=== PATIENT | female | born 1935 | race Caucasian/White ===

== ENCOUNTER 2020-03-01 17:45 | Inpatient (IN) ==
[2020-03-01] MEDS ORDERED: DILTIAZEM 50 MG/10 ML VIAL IV STA (18:20)
[2020-03-01] MEDS ORDERED: DILTIAZEM 25 MG/5 ML VIAL IV ONE (18:26)
[2020-03-01] MEDS ORDERED: dilTIAZem Drip 125 MG/125 ML PREMIX IV ONE (18:39)
[2020-03-01] MEDS ORDERED: KETOROLAC 30 MG/1 ML VIAL IV STA (18:59)
[2020-03-01] MEDS ORDERED: ASPIRIN 325 MG TABLET PO STA (18:59)
[2020-03-01] MEDS ORDERED: ENOXAPARIN 100 MG/ML SYRINGE SUBCUT STA ×2 (18:59→20:27)
[2020-03-01] MEDS ORDERED: SODIUM CHLORIDE 0.9% 500 ML IV STA (18:59)
[2020-03-01] MEDS ORDERED: ONDANSETRON 4 MG/2 ML VIAL IV STA (18:59)
[2020-03-01] MEDS ORDERED: dilTIAZem Drip 125 MG/125 ML PREMIX IV SCH (19:00)
[2020-03-01 19:06] LABS: Basophils # 0.1 10*3/uL (0.0-0.2); Basophils % 0.7 % (0.0-0.8); Eosinophils # 0.3 10*3/uL (0.0-0.87); Hematocrit 33.7 VOL% (35.7-47.0); Hemoglobin 10.9 GM/DL (12.0-16.0); Immature Granulocytes % 1.8 %; Immature Granulocytes Absolute 0.19 #; Lymphocytes # 1.5 10*3/uL (1.4-4.0); Lymphocytes % 13.6 % (21.3-54.2); Mean Corpuscular HGB Conc 32.3 GM/DL (32-36); Mean Corpuscular Volume 88.2 FL (87-102); Mean Platelet Volume 10.8 FL (9.6-12.0); Monocytes % 8.1 % (1.7-12.7); Neutrophils % 72.8 % (38.7-73.9); Platelet Count 253 T/CUMM (130-400); Red Blood Count 3.82 MC/CUMM (3.8-5.5); Red Cell Distribution Width 14.3 % (9.3-17.3); White Blood Count 10.8 T/CUMM (4-12)
[2020-03-01] MEDS ORDERED: SODIUM CHLORIDE 0.9% 1,000 ML IV STA (19:06)
[2020-03-01 19:15] LABS: INR 1.1; PT Patient Result 11.3 SECS (9.8-11.9)
[2020-03-01 19:35] LABS: Alanine Aminotransferase 19 U/L (13-56); Albumin 3.5 G/DL (3.4-5.0); Alkaline Phosphatase 66 U/L (45-117); Aspartate Amino Transferase 15 U/L (0-37); Bilirubin,Total < 0.39 MG/DL (0.2-1.0); Blood Urea Nitrogen 19 MG/DL (7-18); Calcium 8.7 MG/DL (8.5-10.1); Estimated Glom Filtration Rate 45 ML/MIN; Free T4 (Free Thyroxine) 1.07 NG/DL (0.76-1.46); Glucose 95 MG/DL (74-106); Osmolality,Calculated 269.2 MOS/KG (273-304); Total Protein 7.3 G/DL (6.4-8.3)
[2020-03-01] MEDS ORDERED: ENOXAPARIN 60 MG/0.6 ML SYRINGE ONE (19:54)
[2020-03-01] MEDS ORDERED: FUROSEMIDE 20 MG/2 ML VIAL IV STA (20:07)
[2020-03-02] MEDS ORDERED: NITROGLYCERIN SL 0.4 MG TABLET SL PRN (00:40)
[2020-03-02] MEDS ORDERED: MECLIZINE 25 MG TABLET PO PRN (00:40)
[2020-03-02] MEDS ORDERED: SODIUM CHLORIDE 0.9% 1,000 ML IV SCH (00:40)
[2020-03-02] MEDS ORDERED: DOCUSATE SODIUM 100 MG CAPSULE PO SCH (00:40)
[2020-03-02] MEDS: ACETAMINOPHEN 325 MG TABLET PO PRN ×3 (01:02→15:41)
[2020-03-02] MEDS: SIMVASTATIN 20 MG TABLET PO SCH ×2 (01:02→20:16)
[2020-03-02] MEDS: DONEPEZIL 5 MG TABLET PO SCH ×2 (01:03→20:17)
[2020-03-02] MEDS: DOCUSATE SODIUM 100 MG CAPSULE PO SCH ×3 (01:03→20:17)
[2020-03-02] MEDS: OLANZapine 5 MG TABLET PO SCH ×2 (01:03→20:16)
[2020-03-02] MEDS: tiZANidine 4 MG TABLET PO SCH ×2 (01:03→20:17)
[2020-03-02] MEDS: ONDANSETRON 4 MG/2 ML VIAL IV PRN ×2 (05:36→10:52)
[2020-03-02 05:54] LABS: Basophils # 0.1 10*3/uL (0.0-0.2); Basophils % 0.8 % (0.0-0.8); Eosinophils # 0.3 10*3/uL (0.0-0.87); Eosinophils % 4.5 % (0.00-10.9); Hematocrit 30.7 VOL% (35.7-47.0); Hemoglobin 9.7 GM/DL (12.0-16.0); Immature Granulocytes % 1.3 %; Lymphocytes # 1.6 10*3/uL (1.4-4.0); Lymphocytes % 21.8 % (21.3-54.2); Mean Corpuscular HGB Conc 31.6 GM/DL (32-36); Mean Corpuscular Volume 90.3 FL (87-102); Mean Platelet Volume 10.8 FL (9.6-12.0); Monocytes % 8.4 % (1.7-12.7); Neutrophils % 63.2 % (38.7-73.9); Platelet Count 185 T/CUMM (130-400); Red Cell Distribution Width 14.6 % (9.3-17.3); White Blood Count 7.5 T/CUMM (4-12)
[2020-03-02 06:22] LABS: Bilirubin,Total 0.7 MG/DL (0.2-1.0); Calcium 7.7 MG/DL (8.5-10.1); Osmolality,Calculated 279.5 MOS/KG (273-304)
[2020-03-02 07:00] LABS: Risk Ratio 4.31; VLDL CHOLESTEROL 36.6 MG/DL
[2020-03-02] MEDS ORDERED: FUROSEMIDE 20 MG TABLET PO SCH (08:00)
[2020-03-02] MEDS ORDERED: PANTOPRAZOLE 40 MG TABLET PO SCH (09:00)
[2020-03-02] MEDS: DIVALPROEX ER 250 MG TABLET PO SCH (09:28)
[2020-03-02] MEDS: MULTIVITAMIN (CENTRUM) TABLET PO SCH (09:29)
[2020-03-02] MEDS: CALCIUM (CARBONATE)/VITAMIN D 500 MG-200 UNIT TABLET PO SCH (09:32)
[2020-03-02] MEDS: PANTOPRAZOLE 40 MG TABLET PO SCH (09:33)
[2020-03-02] MEDS: DILTIAZEM CD 120 MG CAPSULE PO SCH (09:34)
[2020-03-02] MEDS: ASPIRIN 325 MG TABLET PO SCH (09:34)
[2020-03-02] MEDS: SERTRALINE 100 MG TABLET PO SCH (09:34)
[2020-03-02] MEDS ORDERED: FUROSEMIDE 40 MG/4 ML VIAL IV ONE (10:37)
[2020-03-02] MEDS ORDERED: DIGOXIN 0.5 MG/2 ML AMP IV ONE ×2 (10:39→12:26)
[2020-03-02] MEDS: ASCORBIC ACID 500 MG TABLET PO SCH ×2 (10:52→20:17)
[2020-03-02] MEDS ORDERED: dilTIAZem Drip 125 MG/125 ML PREMIX IV ONE (11:11)
[2020-03-02] MEDS ORDERED: ENOXAPARIN 30 MG/0.3 ML SYRINGE SUBCUT ONE (11:13)
[2020-03-02] MEDS: ALBUTEROL/IPRATROPIUM 3 ML NEB RESP TX SCH ×4 (11:35→23:24)
[2020-03-02] MEDS ORDERED: DILTIAZEM 25 MG/5 ML VIAL IV ONE (12:00)
[2020-03-02] MEDS: dilTIAZem Drip 125 MG/125 ML PREMIX IV SCH ×2 (12:21→20:18)
[2020-03-02] MEDS ORDERED: DILTIAZEM 50 MG/10 ML VIAL IV ONE (12:22)
[2020-03-02] MEDS: LEVOFLOXACIN INJ 500 MG in PREMIX 1 EACH IV SCH (12:22)
[2020-03-02 12:25] LABS: ABG Base Excess -6.6 MMOL/L (-2.5-2.5); ABG HCO3 19.1 MMOL/L (20-26); ABG Oxygen Saturation 98.1 % (95-100); ABG TCO2 24.3 MMOL/L (23-27); Allen Test Positive
[2020-03-02 12:28] LABS: ABG PCO2 84.5 MM HG (35-48); ABG PH 7.097 (7.35-7.45)
[2020-03-02 12:37] LABS: Apearance,Urine Slightly Hazy (Clear); Bacteria,Urine Few /HPF (Few); Bilirubin,Urine Negative (Negative); Blood, Urine Small mg/dL (Negative); Glucose,Urine (UA) Negative (Negative); Ketones,Urine Negative (Negative); Nitrite,Urine Negative (Negative); Protein,Urine 100 MG/DL; RBC,Urine 4 /HPF (0-4); Squamous Epithelial Cell,Urine Occasional /HPF (0-10); Urine Color Yellow (Yellow); Urine Urobilinogen < 2.0 EU/DL (0.2-1.0); WBC,Urine 12 /HPF (0-6)
[2020-03-02] MEDS ORDERED: FUROSEMIDE INJ 200 MG in SODIUM CHLORIDE 0.9% 80 ML IV SCH (13:30)
[2020-03-02] MEDS: NITROGLYCERIN DRIP 50 MG/250 ML BOTTLE IV SCH (13:32)
[2020-03-02] MEDS ORDERED: ENOXAPARIN 40 MG/0.4 ML SYRINGE SUBCUT SCH (17:00)
[2020-03-02] MEDS: SIMETHICONE CHEW 125 MG TABLET PO PRN (17:27)
[2020-03-02] MEDS: ENOXAPARIN 80 MG/0.8 ML SYRINGE SUBCUT SCH (20:15)
[2020-03-02] MEDS: CETIRIZINE 10 MG TABLET PO SCH (20:17)
[2020-03-03] MEDS: ALBUTEROL/IPRATROPIUM 3 ML NEB RESP TX SCH ×6 (02:54→23:24)
[2020-03-03] MEDS: ACETAMINOPHEN 325 MG TABLET PO PRN ×3 (03:15→20:53)
[2020-03-03 05:38] LABS: Basophils % 0.3 % (0.0-0.8); Eosinophils # 0.2 10*3/uL (0.0-0.87); Eosinophils % 1.4 % (0.00-10.9); Hematocrit 34.2 VOL% (35.7-47.0); Hemoglobin 11.4 GM/DL (12.0-16.0); Immature Granulocytes % 0.8 %; Immature Granulocytes Absolute 0.11 #; Lymphocytes # 1.6 10*3/uL (1.4-4.0); Lymphocytes % 12.4 % (21.3-54.2); Mean Corpuscular HGB Conc 33.3 GM/DL (32-36); Mean Corpuscular Volume 86.8 FL (87-102); Mean Platelet Volume 10.8 FL (9.6-12.0); Monocytes % 7.9 % (1.7-12.7); Neutrophils % 77.2 % (38.7-73.9); Platelet Count 237 T/CUMM (130-400); Red Blood Count 3.94 MC/CUMM (3.8-5.5); Red Cell Distribution Width 14.2 % (9.3-17.3); White Blood Count 13.2 T/CUMM (4-12)
[2020-03-03 05:56] LABS: Calcium 8.5 MG/DL (8.5-10.1); Osmolality,Calculated 267.2 MOS/KG (273-304)
[2020-03-03 05:57] LABS: Troponin I 0.218 NG/ML (0.00-0.045)
[2020-03-03] MEDS: ONDANSETRON 4 MG/2 ML VIAL IV PRN (07:29)
[2020-03-03] MEDS: ASPIRIN 325 MG TABLET PO SCH (08:55)
[2020-03-03] MEDS: ASCORBIC ACID 500 MG TABLET PO SCH ×2 (08:56→20:36)
[2020-03-03] MEDS: CALCIUM (CARBONATE)/VITAMIN D 500 MG-200 UNIT TABLET PO SCH (08:56)
[2020-03-03] MEDS: PANTOPRAZOLE 40 MG TABLET PO SCH (08:57)
[2020-03-03] MEDS: MULTIVITAMIN (CENTRUM) TABLET PO SCH (08:57)
[2020-03-03] MEDS: DILTIAZEM CD 120 MG CAPSULE PO SCH (08:58)
[2020-03-03] MEDS: DOCUSATE SODIUM 100 MG CAPSULE PO SCH ×2 (09:00→20:36)
[2020-03-03] MEDS: DIVALPROEX ER 250 MG TABLET PO SCH (09:00)
[2020-03-03] MEDS: ENOXAPARIN 80 MG/0.8 ML SYRINGE SUBCUT SCH ×2 (09:01→20:36)
[2020-03-03] MEDS: SERTRALINE 100 MG TABLET PO SCH (09:02)
[2020-03-03] MEDS ORDERED: MAGNESIUM SULF RIDER 2 GM in PREMIX 1 EACH IV ONE ×2 (09:45→11:28)
[2020-03-03] MEDS: POTASSIUM CHLORIDE 20 MEQ TABLET PO SCH (10:10)
[2020-03-03] MEDS: SIMETHICONE CHEW 125 MG TABLET PO PRN (10:10)
[2020-03-03] MEDS ORDERED: DILTIAZEM CD 120 MG CAPSULE PO SCH (11:27)
[2020-03-03] MEDS ORDERED: POTASSIUM CHLORIDE 20 MEQ TABLET PO ONE (11:28)
[2020-03-03] MEDS: LEVOFLOXACIN INJ 500 MG in PREMIX 1 EACH IV SCH (13:12)
[2020-03-03] MEDS: NITROGLYCERIN DRIP 50 MG/250 ML BOTTLE IV SCH (14:01)
[2020-03-03] MEDS: dilTIAZem Drip 125 MG/125 ML PREMIX IV SCH (14:35)
[2020-03-03] MEDS: FUROSEMIDE 20 MG/2 ML VIAL IV SCH (17:27)
[2020-03-03] MEDS: Mirabegron [Myrbetriq] 25 MG PO SCH (18:20)
[2020-03-03] MEDS: CETIRIZINE 10 MG TABLET PO SCH (20:36)
[2020-03-03] MEDS: OLANZapine 5 MG TABLET PO SCH (20:36)
[2020-03-03] MEDS: DONEPEZIL 5 MG TABLET PO SCH (20:37)
[2020-03-03] MEDS: SIMVASTATIN 20 MG TABLET PO SCH (20:37)
[2020-03-03] MEDS: tiZANidine 4 MG TABLET PO SCH (20:37)
[2020-03-04] MEDS: ALBUTEROL/IPRATROPIUM 3 ML NEB RESP TX SCH ×6 (03:31→23:39)
[2020-03-04] MEDS: LEVOTHYROXINE 100 MCG TABLET PO SCH (05:56)
[2020-03-04 07:22] LABS: Basophils # 0.1 10*3/uL (0.0-0.2); Basophils % 0.6 % (0.0-0.8); Eosinophils # 0.3 10*3/uL (0.0-0.87); Eosinophils % 2.8 % (0.00-10.9); Hematocrit 32.3 VOL% (35.7-47.0); Hemoglobin 10.4 GM/DL (12.0-16.0); Lymphocytes # 1.5 10*3/uL (1.4-4.0); Lymphocytes % 15.9 % (21.3-54.2); Mean Corpuscular HGB Conc 32.2 GM/DL (32-36); Mean Corpuscular Volume 88.7 FL (87-102); Mean Platelet Volume 10.1 FL (9.6-12.0); Monocytes % 8.4 % (1.7-12.7); Neutrophils % 71.3 % (38.7-73.9); Platelet Count 201 T/CUMM (130-400); Red Blood Count 3.64 MC/CUMM (3.8-5.5); Red Cell Distribution Width 14.3 % (9.3-17.3); White Blood Count 9.7 T/CUMM (4-12)
[2020-03-04 07:46] LABS: Albumin 3.1 G/DL (3.4-5.0); Bilirubin,Total 0.4 MG/DL (0.2-1.0); Calcium 8.3 MG/DL (8.5-10.1); Osmolality,Calculated 259.8 MOS/KG (273-304); Total Protein 6.4 G/DL (6.4-8.3)
[2020-03-04] MEDS: POTASSIUM CHLORIDE 20 MEQ TABLET PO SCH (08:22)
[2020-03-04] MEDS: CALCIUM (CARBONATE)/VITAMIN D 500 MG-200 UNIT TABLET PO SCH (08:22)
[2020-03-04] MEDS: PANTOPRAZOLE 40 MG TABLET PO SCH (08:23)
[2020-03-04] MEDS: ASCORBIC ACID 500 MG TABLET PO SCH ×2 (08:23→20:49)
[2020-03-04] MEDS: ASPIRIN 325 MG TABLET PO SCH (08:23)
[2020-03-04] MEDS: MULTIVITAMIN (CENTRUM) TABLET PO SCH (08:23)
[2020-03-04] MEDS: SERTRALINE 100 MG TABLET PO SCH (08:23)
[2020-03-04] MEDS: DOCUSATE SODIUM 100 MG CAPSULE PO SCH ×2 (08:23→20:48)
[2020-03-04] MEDS: ENOXAPARIN 80 MG/0.8 ML SYRINGE SUBCUT SCH ×2 (08:24→20:47)
[2020-03-04] MEDS: FUROSEMIDE 20 MG/2 ML VIAL IV SCH ×2 (08:25→16:13)
[2020-03-04] MEDS: Mirabegron [Myrbetriq] 25 MG PO SCH (08:26)
[2020-03-04] MEDS: DIVALPROEX ER 250 MG TABLET PO SCH (08:26)
[2020-03-04] MEDS: ACETAMINOPHEN 325 MG TABLET PO PRN ×2 (11:23→20:48)
[2020-03-04] MEDS: LEVOFLOXACIN INJ 500 MG in PREMIX 1 EACH IV SCH (11:23)
[2020-03-04] MEDS ORDERED: DILTIAZEM CD 300 MG CAPSULE PO SCH (11:55)
[2020-03-04] MEDS: dilTIAZem Drip 125 MG/125 ML PREMIX IV SCH (12:16)
[2020-03-04] MEDS: OLANZapine 5 MG TABLET PO SCH (20:48)
[2020-03-04] MEDS: CETIRIZINE 10 MG TABLET PO SCH (20:49)
[2020-03-04] MEDS: DONEPEZIL 5 MG TABLET PO SCH (20:50)
[2020-03-04] MEDS: tiZANidine 4 MG TABLET PO SCH (20:50)
[2020-03-04] MEDS: SIMVASTATIN 20 MG TABLET PO SCH (20:50)
[2020-03-05] MEDS: NITROGLYCERIN DRIP 50 MG/250 ML BOTTLE IV SCH (00:48)
[2020-03-05] MEDS: ALBUTEROL/IPRATROPIUM 3 ML NEB RESP TX SCH ×3 (02:50→11:30)
[2020-03-05] MEDS: LEVOTHYROXINE 100 MCG TABLET PO SCH (05:52)
[2020-03-05] MEDS: SERTRALINE 100 MG TABLET PO SCH (08:40)
[2020-03-05] MEDS: ACETAMINOPHEN 325 MG TABLET PO PRN (08:40)
[2020-03-05] MEDS: ASCORBIC ACID 500 MG TABLET PO SCH (08:40)
[2020-03-05] MEDS: DOCUSATE SODIUM 100 MG CAPSULE PO SCH (08:40)
[2020-03-05] MEDS: MULTIVITAMIN (CENTRUM) TABLET PO SCH (08:40)
[2020-03-05] MEDS: ASPIRIN 325 MG TABLET PO SCH (08:40)
[2020-03-05] MEDS: PANTOPRAZOLE 40 MG TABLET PO SCH (08:40)
[2020-03-05] MEDS: POTASSIUM CHLORIDE 20 MEQ TABLET PO SCH (08:40)
[2020-03-05] MEDS: CALCIUM (CARBONATE)/VITAMIN D 500 MG-200 UNIT TABLET PO SCH (08:41)
[2020-03-05] MEDS: ENOXAPARIN 80 MG/0.8 ML SYRINGE SUBCUT SCH (08:41)
[2020-03-05] MEDS: FUROSEMIDE 20 MG/2 ML VIAL IV SCH (08:41)
[2020-03-05] MEDS: DIVALPROEX ER 250 MG TABLET PO SCH (10:20)
[2020-03-05] MEDS: Mirabegron [Myrbetriq] 25 MG PO SCH (10:21)
[2020-03-05] MEDS: LEVOFLOXACIN INJ 500 MG in PREMIX 1 EACH IV SCH (13:25)
[2020-03-05 15:27] VITALS: BP 88/65
[2020-03-05] MEDS ORDERED: APIXABAN 5 MG TABLET PO SCH (21:00)
== END 2020-03-05 16:12 | disposition home health service (06) | DRG 308 ==
LOC: N.ED 17:45 → N.EDINP 17:45 → N.TELES 22:45 → N.ICU 03-02 11:51 → SUATTDRO 03-02 13:16 → N.TELES 03-04 14:31
PROVIDERS: ADMIT Family Medicine; ATTEND Family Medicine

== ENCOUNTER 2020-03-20 10:37 | Inpatient (IN) ==
[2020-03-20] MEDS ORDERED: ASPIRIN 325 MG TABLET PO STA ×2 (11:07→12:51)
[2020-03-20] MEDS ORDERED: DILTIAZEM 50 MG/10 ML VIAL IV STA (11:07)
[2020-03-20 11:18] LABS: Basophils # 0.1 10*3/uL (0.0-0.2); Basophils % 0.9 % (0.0-0.8); Eosinophils # 0.4 10*3/uL (0.0-0.87); Eosinophils % 3.2 % (0.00-10.9); Hematocrit 36.7 VOL% (35.7-47.0); Hemoglobin 11.7 GM/DL (12.0-16.0); Immature Granulocytes % 1.3 %; Immature Granulocytes Absolute 0.14 #; Lymphocytes # 1.2 10*3/uL (1.4-4.0); Lymphocytes % 10.8 % (21.3-54.2); Mean Corpuscular HGB Conc 31.9 GM/DL (32-36); Mean Corpuscular Volume 91.8 FL (87-102); Mean Platelet Volume 10.1 FL (9.6-12.0); Monocytes % 5.9 % (1.7-12.7); Neutrophils % 77.9 % (38.7-73.9); Platelet Count 326 T/CUMM (130-400); White Blood Count 10.8 T/CUMM (4-12)
[2020-03-20 11:29] LABS: Albumin 3.8 G/DL (3.4-5.0); Bilirubin,Total 0.7 MG/DL (0.2-1.0); Calcium 8.8 MG/DL (8.5-10.1); Osmolality,Calculated 271.8 MOS/KG (273-304); Total Protein 7.4 G/DL (6.4-8.3)
[2020-03-20] MEDS ORDERED: ONDANSETRON 4 MG/2 ML VIAL IV PRN (12:51)
[2020-03-20] MEDS ORDERED: METOPROLOL TARTRATE 25 MG TABLET PO STA (13:56)
[2020-03-20] MEDS ORDERED: NITROGLYCERIN SL 0.4 MG TABLET SL PRN (15:11)
[2020-03-20] MEDS ORDERED: SIMETHICONE CHEW 125 MG TABLET PO PRN (15:11)
[2020-03-20] MEDS ORDERED: FUROSEMIDE 20 MG TABLET PO PRN (15:11)
[2020-03-20] MEDS ORDERED: MECLIZINE 25 MG TABLET PO PRN (15:11)
[2020-03-20] MEDS: ACETAMINOPHEN 325 MG TABLET PO PRN ×2 (15:22→21:20)
[2020-03-20] MEDS ORDERED: ENOXAPARIN 80 MG/0.8 ML SYRINGE SUBCUT ONE (21:00)
[2020-03-20] MEDS: ASCORBIC ACID 500 MG TABLET PO SCH (21:20)
[2020-03-20] MEDS: DOCUSATE SODIUM 100 MG CAPSULE PO SCH (21:20)
[2020-03-20] MEDS: DIVALPROEX SPRINKLE 125 MG CAPSULE PO SCH (21:20)
[2020-03-20] MEDS: POTASSIUM CHLORIDE 20 MEQ TABLET PO SCH (21:21)
[2020-03-20] MEDS: SIMVASTATIN 20 MG TABLET PO SCH (21:21)
[2020-03-20] MEDS: OLANZapine 5 MG TABLET PO SCH (21:21)
[2020-03-20] MEDS: tiZANidine 4 MG TABLET PO PRN (21:21)
[2020-03-20] MEDS: DONEPEZIL 5 MG TABLET PO SCH (21:21)
[2020-03-20] MEDS: METOPROLOL TARTRATE 25 MG TABLET PO SCH (21:28)
[2020-03-21 05:13] LABS: Basophils # 0.1 10*3/uL (0.0-0.2); Basophils % 0.9 % (0.0-0.8); Eosinophils # 0.4 10*3/uL (0.0-0.87); Eosinophils % 5.4 % (0.00-10.9); Hematocrit 33.7 VOL% (35.7-47.0); Hemoglobin 10.9 GM/DL (12.0-16.0); Immature Granulocytes Absolute 0.08 #; Lymphocytes # 1.6 10*3/uL (1.4-4.0); Lymphocytes % 20.5 % (21.3-54.2); Mean Corpuscular HGB Conc 32.3 GM/DL (32-36); Mean Corpuscular Volume 90.6 FL (87-102); Mean Platelet Volume 10.2 FL (9.6-12.0); Monocytes % 8.9 % (1.7-12.7); Neutrophils % 63.3 % (38.7-73.9); Platelet Count 279 T/CUMM (130-400); Red Blood Count 3.72 MC/CUMM (3.8-5.5)
[2020-03-21 06:13] LABS: Blood Urea Nitrogen 15 MG/DL (7-18); Calcium 8.9 MG/DL (8.5-10.1); Estimated Glom Filtration Rate 60 ML/MIN; Free T4 (Free Thyroxine) 1.03 NG/DL (0.76-1.46); Glucose 94 MG/DL (74-106); Osmolality,Calculated 277.5 MOS/KG (273-304); Troponin I < 0.015 NG/ML (0.00-0.045)
[2020-03-21] MEDS: LEVOTHYROXINE 125 MCG TABLET PO SCH (06:37)
[2020-03-21] MEDS: ASPIRIN 325 MG TABLET PO SCH (08:35)
[2020-03-21] MEDS: PANTOPRAZOLE 40 MG TABLET PO SCH (08:35)
[2020-03-21] MEDS: METOPROLOL TARTRATE 25 MG TABLET PO SCH ×2 (08:37→20:37)
[2020-03-21] MEDS: ACETAMINOPHEN 325 MG TABLET PO PRN ×2 (08:38→18:20)
[2020-03-21] MEDS ORDERED: DILTIAZEM CD 300 MG CAPSULE PO SCH (09:00)
[2020-03-21] MEDS: MULTIVITAMIN (CENTRUM) TABLET PO SCH (10:26)
[2020-03-21] MEDS: LORATADINE 10 MG TABLET PO SCH (10:26)
[2020-03-21] MEDS: DOCUSATE SODIUM 100 MG CAPSULE PO SCH ×2 (10:27→20:37)
[2020-03-21] MEDS: SERTRALINE 100 MG TABLET PO SCH (10:27)
[2020-03-21] MEDS: ASCORBIC ACID 500 MG TABLET PO SCH ×2 (10:27→20:37)
[2020-03-21] MEDS: CALCIUM (CARBONATE)/VITAMIN D 500 MG-200 UNIT TABLET PO SCH (10:27)
[2020-03-21] MEDS ORDERED: DIAZEPAM 5 MG TABLET ONE (13:24)
[2020-03-21] MEDS ORDERED: diphenhydrAMINE CAP 25 MG CAPSULE ONE (13:24)
[2020-03-21] MEDS ORDERED: DIAZEPAM 5 MG TABLET PO ONE (13:29)
[2020-03-21] MEDS ORDERED: diphenhydrAMINE CAP 25 MG CAPSULE PO ONE (13:29)
[2020-03-21] MEDS ORDERED: LIDOCAINE 1% 20 ML VIAL ONE (14:07)
[2020-03-21] MEDS ORDERED: fentaNYL 100 MCG/2 ML VIAL ONE (14:14)
[2020-03-21] MEDS ORDERED: MIDAZOLAM 2 MG/2 ML VIAL ONE (14:14)
[2020-03-21] MEDS ORDERED: HEPARIN 5,000 UNIT/1 ML VIAL ONE (14:51)
[2020-03-21] MEDS: SODIUM CHLORIDE 0.9% 1,000 ML IV SCH (14:56)
[2020-03-21] MEDS ORDERED: TIROFIBAN 5,000 MCG/100 ML PREMIX IV ONE (15:49)
[2020-03-21] MEDS ORDERED: TIROFIBAN 5,000 MCG/100 ML PREMIX IV SCH (15:55)
[2020-03-21] MEDS ORDERED: TICAGRELOR 90 MG TABLET ONE (16:40)
[2020-03-21] MEDS ORDERED: fentaNYL 100 MCG/2 ML VIAL IV PRN (17:14)
[2020-03-21 18:13] LABS: Troponin I < 0.015 NG/ML (0.00-0.045)
[2020-03-21] MEDS: cilostazoL 50 MG TABLET PO SCH ×2 (18:20→20:38)
[2020-03-21] MEDS: OLANZapine 5 MG TABLET PO SCH (20:37)
[2020-03-21] MEDS: DONEPEZIL 5 MG TABLET PO SCH (20:37)
[2020-03-21] MEDS: POTASSIUM CHLORIDE 20 MEQ TABLET PO SCH (20:38)
[2020-03-21] MEDS: DIVALPROEX SPRINKLE 125 MG CAPSULE PO SCH (20:38)
[2020-03-21] MEDS: tiZANidine 4 MG TABLET PO PRN (20:38)
[2020-03-21] MEDS: SIMVASTATIN 20 MG TABLET PO SCH (20:39)
[2020-03-21] MEDS ORDERED: SODIUM CHLORIDE 0.9% 500 ML IV ONE (23:11)
[2020-03-21 23:56] LABS: Basophils # 0.1 10*3/uL (0.0-0.2); Basophils % 0.6 % (0.0-0.8); Eosinophils # 0.4 10*3/uL (0.0-0.87); Eosinophils % 3.6 % (0.00-10.9); Hematocrit 31.8 VOL% (35.7-47.0); Hemoglobin 10.4 GM/DL (12.0-16.0); Immature Granulocytes % 1.1 %; Immature Granulocytes Absolute 0.11 #; Lymphocytes # 1.3 10*3/uL (1.4-4.0); Mean Corpuscular HGB Conc 32.7 GM/DL (32-36); Mean Corpuscular Volume 90.1 FL (87-102); Mean Platelet Volume 10.1 FL (9.6-12.0); Monocytes % 7.8 % (1.7-12.7); Neutrophils % 73.9 % (38.7-73.9); Platelet Count 306 T/CUMM (130-400); Red Blood Count 3.53 MC/CUMM (3.8-5.5); White Blood Count 10.2 T/CUMM (4-12)
[2020-03-22] MEDS ORDERED: SODIUM CHLORIDE 0.9% 500 ML IV ONE (00:04)
[2020-03-22 00:16] LABS: Calcium 8.6 MG/DL (8.5-10.1); Osmolality,Calculated 271.8 MOS/KG (273-304)
[2020-03-22] MEDS ORDERED: DOPamine 800 MG/250 ML PREMIX IV PRN (01:09)
[2020-03-22 02:05] LABS: Calcium 8.2 MG/DL (8.5-10.1); Osmolality,Calculated 271.8 MOS/KG (273-304)
[2020-03-22 02:17] LABS: Troponin I < 0.015 NG/ML (0.00-0.045)
[2020-03-22 02:22] LABS: Basophils # 0.1 10*3/uL (0.0-0.2); Basophils % 0.6 % (0.0-0.8); Eosinophils # 0.3 10*3/uL (0.0-0.87); Eosinophils % 3.5 % (0.00-10.9); Hematocrit 31.9 VOL% (35.7-47.0); Hemoglobin 10.3 GM/DL (12.0-16.0); Immature Granulocytes % 1.1 %; Lymphocytes # 1.1 10*3/uL (1.4-4.0); Lymphocytes % 11.9 % (21.3-54.2); Mean Corpuscular HGB Conc 32.3 GM/DL (32-36); Mean Corpuscular Volume 90.1 FL (87-102); Mean Platelet Volume 10.3 FL (9.6-12.0); Monocytes % 7.8 % (1.7-12.7); Neutrophils % 75.1 % (38.7-73.9); Platelet Count 272 T/CUMM (130-400); Red Blood Count 3.54 MC/CUMM (3.8-5.5); Red Cell Distribution Width 14.8 % (9.3-17.3); White Blood Count 9.3 T/CUMM (4-12)
[2020-03-22] MEDS ORDERED: DIGOXIN 0.5 MG/2 ML AMP IV PRN (09:01)
[2020-03-22] MEDS: ASPIRIN 325 MG TABLET PO SCH (09:36)
[2020-03-22] MEDS: ASCORBIC ACID 500 MG TABLET PO SCH ×2 (09:36→20:12)
[2020-03-22] MEDS: LEVOTHYROXINE 125 MCG TABLET PO SCH (09:36)
[2020-03-22] MEDS: PANTOPRAZOLE 40 MG TABLET PO SCH (09:36)
[2020-03-22] MEDS: DOCUSATE SODIUM 100 MG CAPSULE PO SCH ×2 (09:36→20:13)
[2020-03-22] MEDS: MULTIVITAMIN (CENTRUM) TABLET PO SCH (09:36)
[2020-03-22] MEDS: cilostazoL 50 MG TABLET PO SCH ×2 (09:37→20:13)
[2020-03-22] MEDS: LORATADINE 10 MG TABLET PO SCH (09:37)
[2020-03-22] MEDS: CALCIUM (CARBONATE)/VITAMIN D 500 MG-200 UNIT TABLET PO SCH (09:37)
[2020-03-22] MEDS: SERTRALINE 100 MG TABLET PO SCH (09:38)
[2020-03-22] MEDS: SODIUM CHLORIDE 0.9% 1,000 ML IV SCH ×4 (09:40→19:43)
[2020-03-22 09:56] LABS: Troponin I < 0.015 NG/ML (0.00-0.045)
[2020-03-22] MEDS: METOPROLOL TARTRATE 25 MG TABLET PO SCH ×2 (13:05→20:12)
[2020-03-22] MEDS: DILTIAZEM 60 MG TABLET PO SCH ×2 (15:40→20:12)
[2020-03-22] MEDS: ACETAMINOPHEN 325 MG TABLET PO PRN (15:40)
[2020-03-22] MEDS: DONEPEZIL 5 MG TABLET PO SCH (20:12)
[2020-03-22] MEDS: OLANZapine 5 MG TABLET PO SCH (20:12)
[2020-03-22] MEDS: DIVALPROEX SPRINKLE 125 MG CAPSULE PO SCH (20:12)
[2020-03-22] MEDS: SIMVASTATIN 20 MG TABLET PO SCH (20:12)
[2020-03-22] MEDS: POTASSIUM CHLORIDE 20 MEQ TABLET PO SCH (20:12)
[2020-03-23] MEDS: DILTIAZEM 60 MG TABLET PO SCH (03:12)
[2020-03-23] MEDS: SODIUM CHLORIDE 0.9% 1,000 ML IV SCH ×3 (03:56→20:15)
[2020-03-23] MEDS: LEVOTHYROXINE 125 MCG TABLET PO SCH (06:05)
[2020-03-23] MEDS ORDERED: APIXABAN 5 MG TABLET PO SCH (09:00)
[2020-03-23 09:03] LABS: Basophils # 0.1 10*3/uL (0.0-0.2); Basophils % 0.5 % (0.0-0.8); Eosinophils # 0.5 10*3/uL (0.0-0.87); Eosinophils % 3.9 % (0.00-10.9); Hematocrit 35.5 VOL% (35.7-47.0); Hemoglobin 11.7 GM/DL (12.0-16.0); Immature Granulocytes % 0.8 %; Immature Granulocytes Absolute 0.09 #; Lymphocytes # 1.2 10*3/uL (1.4-4.0); Lymphocytes % 10.3 % (21.3-54.2); Mean Corpuscular Volume 88.1 FL (87-102); Monocytes % 6.3 % (1.7-12.7); Neutrophils % 78.2 % (38.7-73.9); Platelet Count 283 T/CUMM (130-400); Red Blood Count 4.03 MC/CUMM (3.8-5.5); Red Cell Distribution Width 14.6 % (9.3-17.3); White Blood Count 11.5 T/CUMM (4-12)
[2020-03-23 09:25] LABS: Calcium 9.3 MG/DL (8.5-10.1); Osmolality,Calculated 273.7 MOS/KG (273-304)
[2020-03-23] MEDS: cilostazoL 50 MG TABLET PO SCH ×2 (09:27→21:32)
[2020-03-23] MEDS: DOCUSATE SODIUM 100 MG CAPSULE PO SCH ×2 (09:27→21:32)
[2020-03-23] MEDS: MULTIVITAMIN (CENTRUM) TABLET PO SCH (09:27)
[2020-03-23] MEDS: CALCIUM (CARBONATE)/VITAMIN D 500 MG-200 UNIT TABLET PO SCH (09:27)
[2020-03-23] MEDS: SERTRALINE 100 MG TABLET PO SCH (09:27)
[2020-03-23] MEDS: PANTOPRAZOLE 40 MG TABLET PO SCH (09:27)
[2020-03-23] MEDS: ASPIRIN EC 81 MG TABLET PO SCH (09:28)
[2020-03-23] MEDS: DILTIAZEM CD 300 MG CAPSULE PO SCH (09:28)
[2020-03-23] MEDS: METOPROLOL TARTRATE 25 MG TABLET PO SCH ×2 (09:28→21:32)
[2020-03-23] MEDS: ASCORBIC ACID 500 MG TABLET PO SCH ×2 (09:28→21:32)
[2020-03-23] MEDS: LORATADINE 10 MG TABLET PO SCH (09:28)
[2020-03-23] MEDS: MIRABEGRON 25 MG PO SCH (09:29)
[2020-03-23] MEDS: ACETAMINOPHEN 325 MG TABLET PO PRN ×2 (09:34→16:00)
[2020-03-23] MEDS: DIVALPROEX SPRINKLE 125 MG CAPSULE PO SCH (21:32)
[2020-03-23] MEDS: POTASSIUM CHLORIDE 20 MEQ TABLET PO SCH (21:32)
[2020-03-23] MEDS: DONEPEZIL 5 MG TABLET PO SCH (21:32)
[2020-03-23] MEDS: SIMVASTATIN 20 MG TABLET PO SCH (21:33)
[2020-03-23] MEDS: OLANZapine 5 MG TABLET PO SCH (21:33)
[2020-03-23] MEDS: tiZANidine 4 MG TABLET PO PRN (21:36)
[2020-03-24] MEDS ORDERED: LEVOTHYROXINE 125 MCG TABLET PO SCH (07:30)
[2020-03-24] MEDS: DOCUSATE SODIUM 100 MG CAPSULE PO SCH (09:40)
[2020-03-24] MEDS: PANTOPRAZOLE 40 MG TABLET PO SCH (09:40)
[2020-03-24] MEDS: ASCORBIC ACID 500 MG TABLET PO SCH (09:40)
[2020-03-24] MEDS: METOPROLOL TARTRATE 25 MG TABLET PO SCH (09:40)
[2020-03-24] MEDS: MULTIVITAMIN (CENTRUM) TABLET PO SCH (09:40)
[2020-03-24] MEDS: cilostazoL 50 MG TABLET PO SCH (09:40)
[2020-03-24] MEDS: DILTIAZEM CD 300 MG CAPSULE PO SCH (09:40)
[2020-03-24] MEDS: ASPIRIN EC 81 MG TABLET PO SCH (09:41)
[2020-03-24] MEDS: CALCIUM (CARBONATE)/VITAMIN D 500 MG-200 UNIT TABLET PO SCH (09:41)
[2020-03-24] MEDS: SODIUM CHLORIDE 0.9% 1,000 ML IV SCH (09:41)
[2020-03-24] MEDS: SERTRALINE 100 MG TABLET PO SCH (09:41)
[2020-03-24] MEDS: LORATADINE 10 MG TABLET PO SCH (09:41)
[2020-03-24] MEDS: MIRABEGRON 25 MG PO SCH (09:41)
[2020-03-24] MEDS: ACETAMINOPHEN 325 MG TABLET PO PRN (11:54)
[2020-03-24 12:19] VITALS: BP 104/61
== END 2020-03-24 16:00 | disposition home health service (06) | DRG 251 ==
LOC: N.ED 10:37 → N.EDINP 10:37 → N.TELEN 14:28 → N.CC 03-22 06:50 → N.TELEN 03-23 07:24
PROVIDERS: ADMIT Family Medicine; ATTEND Family Medicine
PROC: CLCCHCL (ICD-10-PCS; 2020-03-21 14:15)

== ENCOUNTER 2020-04-08 13:52 | Inpatient (IN) ==
[2020-04-08 14:38] LABS: Basophils # 0.1 10*3/uL (0.0-0.2); Basophils % 0.5 % (0.0-0.8); Eosinophils # 0.1 10*3/uL (0.0-0.87); Eosinophils % 0.5 % (0.00-10.9); Hematocrit 35.6 VOL% (35.7-47.0); Hemoglobin 11.7 GM/DL (12.0-16.0); Immature Granulocytes % 0.9 %; Immature Granulocytes Absolute 0.13 #; Lymphocytes # 0.6 10*3/uL (1.4-4.0); Lymphocytes % 4.3 % (21.3-54.2); Mean Corpuscular HGB Conc 32.9 GM/DL (32-36); Mean Corpuscular Volume 88.6 FL (87-102); Mean Platelet Volume 10.5 FL (9.6-12.0); Monocytes % 4.2 % (1.7-12.7); Neutrophils % 89.6 % (38.7-73.9); Platelet Count 241 T/CUMM (130-400); Red Blood Count 4.02 MC/CUMM (3.8-5.5); Red Cell Distribution Width 14.6 % (9.3-17.3); White Blood Count 14.8 T/CUMM (4-12)
[2020-04-08 14:50] LABS: PT Patient Result 10.9 SECS (9.8-11.9); Partial Thromboplastin Time 28.7 SECS (23.9-33.8)
[2020-04-08 14:58] LABS: Lymphocytes 4 % (20-55); Segmented Neutrophils 90 % (50-85); Total Cells Counted 100
[2020-04-08 14:59] LABS: Anisocytosis Slight; Hypochromasia 1+; Microcytosis 1+; Platelet Estimate Adequate
[2020-04-08 15:22] LABS: Alanine Aminotransferase 22 U/L (13-56); Albumin 4.1 G/DL (3.4-5.0); Alkaline Phosphatase 67 U/L (45-117); Aspartate Amino Transferase 16 U/L (0-37); Bilirubin,Total < 0.39 MG/DL (0.2-1.0); Blood Urea Nitrogen 10 MG/DL (7-18); Calcium 9.1 MG/DL (8.5-10.1); Estimated Glom Filtration Rate 61 ML/MIN; Glucose 109 MG/DL (74-106); Osmolality,Calculated 272.8 MOS/KG (273-304); Total Protein 8.2 G/DL (6.4-8.3)
[2020-04-08] MEDS: dilTIAZem Drip 125 MG/125 ML PREMIX IV SCH (16:15)
[2020-04-08] MEDS ORDERED: ONDANSETRON 4 MG/2 ML VIAL IV PRN (18:10)
[2020-04-08] MEDS ORDERED: cefTRIAXone 1,000 MG in SYRINGE 1 EACH IV STA (18:10)
[2020-04-08 19:18] LABS: Troponin I < 0.015 NG/ML (0.00-0.045)
[2020-04-08] MEDS: DOCUSATE SODIUM 100 MG CAPSULE PO SCH (20:07)
[2020-04-08 22:16] LABS: Troponin I < 0.015 NG/ML (0.00-0.045)
[2020-04-09 00:55] LABS: Troponin I < 0.015 NG/ML (0.00-0.045)
[2020-04-09] MEDS: dilTIAZem Drip 125 MG/125 ML PREMIX IV SCH (03:58)
[2020-04-09] MEDS ORDERED: tiZANidine 4 MG TABLET PO PRN (08:28)
[2020-04-09] MEDS ORDERED: SIMETHICONE CHEW 125 MG TABLET PO PRN (08:28)
[2020-04-09] MEDS ORDERED: MECLIZINE 25 MG TABLET PO PRN (08:28)
[2020-04-09] MEDS ORDERED: FUROSEMIDE 20 MG TABLET PO PRN (08:28)
[2020-04-09] MEDS ORDERED: NITROGLYCERIN SL 0.4 MG TABLET SL PRN (08:28)
[2020-04-09] MEDS: MIRABEGRON 25 MG PO SCH (10:10)
[2020-04-09] MEDS: cilostazoL 50 MG TABLET PO SCH ×2 (10:10→21:39)
[2020-04-09] MEDS: DOCUSATE SODIUM 100 MG CAPSULE PO SCH ×2 (10:10→21:38)
[2020-04-09] MEDS: ASPIRIN EC 81 MG TABLET PO SCH (10:10)
[2020-04-09] MEDS: LORATADINE 10 MG TABLET PO SCH (10:10)
[2020-04-09] MEDS: PANTOPRAZOLE 40 MG TABLET PO SCH (10:10)
[2020-04-09] MEDS: CALCIUM (CARBONATE)/VITAMIN D 500 MG-200 UNIT TABLET PO SCH (10:11)
[2020-04-09] MEDS: cefTRIAXone 1,000 MG in SYRINGE 1 EACH IV SCH (10:11)
[2020-04-09] MEDS: METOPROLOL TARTRATE 25 MG TABLET PO SCH ×2 (10:11→21:38)
[2020-04-09] MEDS: ASCORBIC ACID 500 MG TABLET PO SCH ×2 (10:11→21:38)
[2020-04-09] MEDS: SERTRALINE 100 MG TABLET PO SCH (10:11)
[2020-04-09] MEDS: ALBUTEROL 0.63 MG/3 ML NEB RESP TX SCH ×2 (14:01→19:30)
[2020-04-09] MEDS ORDERED: DIGOXIN 0.5 MG/2 ML AMP IV ONE (14:07)
[2020-04-09 14:48] LABS: Calcium 9.3 MG/DL (8.5-10.1); Osmolality,Calculated 274.7 MOS/KG (273-304)
[2020-04-09] MEDS: DILTIAZEM 30 MG TABLET PO SCH ×3 (15:45→21:38)
[2020-04-09] MEDS: ACETAMINOPHEN 325 MG TABLET PO PRN ×2 (16:20→21:46)
[2020-04-09] MEDS ORDERED: SIMVASTATIN 20 MG TABLET PO SCH (21:00)
[2020-04-09] MEDS: DONEPEZIL 5 MG TABLET PO SCH (21:37)
[2020-04-09] MEDS: DIVALPROEX SPRINKLE 125 MG CAPSULE PO SCH (21:38)
[2020-04-09] MEDS: APIXABAN 5 MG TABLET PO SCH (21:38)
[2020-04-09] MEDS: POTASSIUM CHLORIDE 20 MEQ TABLET PO SCH (21:38)
[2020-04-09] MEDS: ATORVASTATIN 20 MG TABLET PO SCH (21:38)
[2020-04-09] MEDS: OLANZapine 2.5 MG TABLET PO SCH (21:39)
[2020-04-10] MEDS: ALBUTEROL 0.63 MG/3 ML NEB RESP TX SCH ×4 (00:16→19:15)
[2020-04-10 06:26] LABS: Basophils # 0.1 10*3/uL (0.0-0.2); Basophils % 0.8 % (0.0-0.8); Eosinophils # 0.5 10*3/uL (0.0-0.87); Hematocrit 34.8 VOL% (35.7-47.0); Hemoglobin 11.2 GM/DL (12.0-16.0); Immature Granulocytes % 0.7 %; Immature Granulocytes Absolute 0.07 #; Lymphocytes # 1.6 10*3/uL (1.4-4.0); Lymphocytes % 15.7 % (21.3-54.2); Mean Corpuscular HGB Conc 32.2 GM/DL (32-36); Mean Platelet Volume 10.7 FL (9.6-12.0); Monocytes % 8.8 % (1.7-12.7); Platelet Count 247 T/CUMM (130-400); Red Blood Count 3.91 MC/CUMM (3.8-5.5); Red Cell Distribution Width 14.6 % (9.3-17.3); White Blood Count 10.2 T/CUMM (4-12)
[2020-04-10 06:53] LABS: Calcium 9.6 MG/DL (8.5-10.1); Osmolality,Calculated 272.8 MOS/KG (273-304)
[2020-04-10] MEDS: cefTRIAXone 1,000 MG in SYRINGE 1 EACH IV SCH (08:40)
[2020-04-10] MEDS: SERTRALINE 100 MG TABLET PO SCH (08:41)
[2020-04-10] MEDS: ASCORBIC ACID 500 MG TABLET PO SCH ×2 (08:41→21:09)
[2020-04-10] MEDS: METOPROLOL TARTRATE 25 MG TABLET PO SCH ×2 (08:41→21:08)
[2020-04-10] MEDS: DOCUSATE SODIUM 100 MG CAPSULE PO SCH ×2 (08:41→21:22)
[2020-04-10] MEDS: CALCIUM (CARBONATE)/VITAMIN D 500 MG-200 UNIT TABLET PO SCH (08:41)
[2020-04-10] MEDS: FUROSEMIDE 20 MG TABLET PO SCH (08:41)
[2020-04-10] MEDS: PANTOPRAZOLE 40 MG TABLET PO SCH (08:41)
[2020-04-10] MEDS: ASPIRIN EC 81 MG TABLET PO SCH (08:41)
[2020-04-10] MEDS: DILTIAZEM 30 MG TABLET PO SCH (08:41)
[2020-04-10] MEDS: APIXABAN 5 MG TABLET PO SCH ×2 (08:41→21:07)
[2020-04-10] MEDS: cilostazoL 50 MG TABLET PO SCH ×2 (08:42→21:21)
[2020-04-10] MEDS: LORATADINE 10 MG TABLET PO SCH (08:42)
[2020-04-10] MEDS: LEVOTHYROXINE 125 MCG TABLET PO SCH (08:46)
[2020-04-10] MEDS: MIRABEGRON 25 MG PO SCH (08:56)
[2020-04-10] MEDS ORDERED: DIGOXIN 0.5 MG/2 ML AMP IV ONE ×2 (11:14→19:00)
[2020-04-10] MEDS: DILTIAZEM 60 MG TABLET PO SCH ×3 (13:38→21:08)
[2020-04-10] MEDS: ACETAMINOPHEN 325 MG TABLET PO PRN (16:54)
[2020-04-10] MEDS: DIVALPROEX SPRINKLE 125 MG CAPSULE PO SCH (21:07)
[2020-04-10] MEDS: ATORVASTATIN 20 MG TABLET PO SCH (21:07)
[2020-04-10] MEDS: OLANZapine 2.5 MG TABLET PO SCH (21:07)
[2020-04-10] MEDS: DONEPEZIL 5 MG TABLET PO SCH (21:09)
[2020-04-10] MEDS: POTASSIUM CHLORIDE 20 MEQ TABLET PO SCH (21:10)
[2020-04-11] MEDS: ALBUTEROL 0.63 MG/3 ML NEB RESP TX SCH ×3 (01:16→13:45)
[2020-04-11 04:20] LABS: Basophils # 0.1 10*3/uL (0.0-0.2); Eosinophils # 0.5 10*3/uL (0.0-0.87); Eosinophils % 5.3 % (0.00-10.9); Hematocrit 33.1 VOL% (35.7-47.0); Hemoglobin 10.8 GM/DL (12.0-16.0); Immature Granulocytes % 0.5 %; Immature Granulocytes Absolute 0.04 #; Lymphocytes # 1.5 10*3/uL (1.4-4.0); Lymphocytes % 18.3 % (21.3-54.2); Mean Corpuscular HGB Conc 32.6 GM/DL (32-36); Mean Corpuscular Volume 89.5 FL (87-102); Mean Platelet Volume 10.6 FL (9.6-12.0); Monocytes % 9.4 % (1.7-12.7); Neutrophils % 65.5 % (38.7-73.9); Platelet Count 210 T/CUMM (130-400); Red Cell Distribution Width 14.4 % (9.3-17.3); White Blood Count 8.4 T/CUMM (4-12)
[2020-04-11 04:38] LABS: Calcium 9.1 MG/DL (8.5-10.1)
[2020-04-11] MEDS: ACETAMINOPHEN 325 MG TABLET PO PRN ×2 (06:49→12:10)
[2020-04-11] MEDS: cefTRIAXone 1,000 MG in SYRINGE 1 EACH IV SCH (09:24)
[2020-04-11] MEDS: cilostazoL 50 MG TABLET PO SCH (09:25)
[2020-04-11] MEDS: LORATADINE 10 MG TABLET PO SCH (09:25)
[2020-04-11] MEDS: METOPROLOL TARTRATE 25 MG TABLET PO SCH (09:25)
[2020-04-11] MEDS: PANTOPRAZOLE 40 MG TABLET PO SCH (09:25)
[2020-04-11] MEDS: CALCIUM (CARBONATE)/VITAMIN D 500 MG-200 UNIT TABLET PO SCH (09:25)
[2020-04-11] MEDS: ASPIRIN EC 81 MG TABLET PO SCH (09:25)
[2020-04-11] MEDS: DILTIAZEM 60 MG TABLET PO SCH ×2 (09:25→13:34)
[2020-04-11] MEDS: ASCORBIC ACID 500 MG TABLET PO SCH (09:25)
[2020-04-11] MEDS: LEVOTHYROXINE 125 MCG TABLET PO SCH (09:26)
[2020-04-11] MEDS: DOCUSATE SODIUM 100 MG CAPSULE PO SCH (09:26)
[2020-04-11] MEDS: APIXABAN 5 MG TABLET PO SCH (09:26)
[2020-04-11] MEDS: FUROSEMIDE 20 MG TABLET PO SCH (09:26)
[2020-04-11] MEDS: SERTRALINE 100 MG TABLET PO SCH (09:26)
[2020-04-11] MEDS: MIRABEGRON 25 MG PO SCH (09:31)
[2020-04-11 16:13] VITALS: BP 155/74
[2020-04-11] MEDS ORDERED: INFLUENZA VIRUS VACCINE 0.5 ML SYRINGE IM ONE (16:28)
== END 2020-04-11 14:50 | disposition home health service (06) | DRG 308 ==
LOC: EDUNIT# → EDBD → N.ED 13:52 → N.EDINP 17:31 → N.TELEN 18:02
PROVIDERS: ADMIT Family Medicine; ATTEND Family Medicine